=== PATIENT | female | born 1945 | race Caucasian/White ===

== ENCOUNTER → 2021-05-14 14:49 | Outpatient (CLI) | payer MEDICARE, SELFPAY ==
[2021-05-14 17:07] LABS: Hemoglobin A1c 8.8 % (3.8-5.6)
[2021-05-14 17:23] LABS: ALB/GLOB Ratio 0.9 RATIO (0.9-2.4); AST(SGOT) 14 U/L (15-37); Alanine Aminotransfer ALT/SGPT 27 U/L (13-56); Albumin, Serum 3.6 g/dL (3.2-5.0); Alkaline Phosphatase 101 U/L (45-117); Anion Gap 9 (5-15); BUN 18 mg/dL (7-18); BUN/Creat Ratio 24.3 RATIO (10-20); Chloride 102 mmol/L (98-107); Cholesterol 159 mg/dL (200); Creatinine, Serum 0.74 mg/dL (0.55-1.02); EST Glomerular Filtration Rate 81 mL/min (>60); Est Glom Filt Rate - Afr Amer 98 mL/min (>60); Glucose 129 mg/dL (74-106); High Density Lipoprotein 47 mg/dL; Potassium 3.6 mmol/L (3.5-5.1); Protein, Total 7.6 g/dL (6.4-8.2); Sodium Level 136 mmol/L (136-145); Thyroid Stim Hormone (TSH) 1.28 uIU/mL (0.358-3.74); Triglycerides 186 mg/dL; Very Low Density Lipoprotein 37 mg/dL (5-40)
[2021-05-14 17:26] LABS: Microalbumin,Random Urine 81.8 mg/L (NO RANGE EST.); Microalbumin:Creatinine Ratio 135.9 mg/g CRE (<30 mg/g CRE)
== END ==
PROVIDERS: PCP Family Medicine; Visit Provider Nurse Practitioner Family
DX: E11.9 Type 2 diabetes mellitus without complications (principal); E55.9 Vitamin D deficiency, unspecified
CPT/HCPCS: 36415; 80053; 80061; 82043; 82306; 82570; 83036; 84443